=== PATIENT | female | born 1970 | race Hispanic/Latino ===

== ENCOUNTER 2017-06-17 16:57 | Emergency (ER) | payer OTHER ==
[~2017-06-17 16:57] MED LIST: AMOX500T2 PO; LACT1CAP68 PO; LEVO500T2 PO; METF-806 PO; NPH,100V SQ
[2017-06-17] MEDS ORDERED: ONDANSETRON HCL MDV 20ML 2 MG/ML VIAL ONE (17:16)
[2017-06-17] MEDS ORDERED: MORPHINE SULFATE 4 MG/1ML SYG ONE ×2 (17:16→19:52)
[2017-06-17 17:19] LABS: BASOPHILS % (AUTO) 0.7 % (0.0-5.0); EOSINOPHILS % (AUTO) 0.7 % (0.0-8.0); HEMATOCRIT 37.9 % (36-48); LYMPHOCYTES % (AUTO) 15.2 % (21.0-51.0); MEAN CORPUSCULAR HEMOGLOBIN 25.6 pg (27.0-33.0); MEAN CORPUSCULAR HGB CONC 33.3 g/dL (32.0-36.0); NEUTROPHILS % (AUTO) 76.4 % (40.0-77.0); PLATELET COUNT (AUTO) 327 K/uL (130-400); RED BLOOD CELL COUNT(AUTO) 4.92 MIL/uL (4.00-5.50); RED CELL DISTRIBUTION WIDTH 15.5 % (11.0-15.5); WHITE BLOOD COUNT (AUTO) 11.9 K/uL (4.8-10.8)
[2017-06-17] MEDS ORDERED: LACTATED RINGERS 1000ML 1,000 ML IV ONE (17:19)
[2017-06-17 17:30] LABS: INR 0.92 (0.85-1.15); PROTHROMBIN TIME 9.7 SEC (9.6-11.6)
[2017-06-17 17:37] LABS: ALANINE AMINOTRANSFERASE 29 U/L (12-78); ALBUMIN 3.1 g/dL (3.5-5.0); ASPARTATE AMINOTRANSFERASE 29 U/L (10-37); BILIRUBIN,TOTAL 0.3 mg/dL (0.2-1.0); CARBON DIOXIDE 28 mmol/L (21-32); CHLORIDE 98 mmol/L (101-111); CREATINE KINASE, TOTAL 48 U/L (21-232); CREATININE 0.8 mg/dL (0.5-1.5); GLOMERULAR FILTR. RATE CALC 82 mL/min (>60); GLUCOSE,RANDOM 349 mg/dL (70-105); LIPASE 127 U/L (114-286); SODIUM SERUM 134 mmol/L (136-145); TOTAL PROTEIN, SERUM 8.2 g/dL (6.0-8.3); UREA NITROGEN, BLOOD 17 mg/dL (7-18)
[2017-06-17] MEDS ORDERED: IOPAMIDOL-370 100 ML VIAL IV ONE (17:49)
[2017-06-17 17:54] LABS: ALCOHOL, BLOOD < 3 mg/dL (0-10)
== END 2017-06-17 20:24 | disposition home or self-care (01) ==
LOC: EDH 16:57
DX: S20.211A Contusion of right front wall of thorax, initial encounter (principal); S40.022A Contusion of left upper arm, initial encounter; S30.0XXA Contusion of lower back and pelvis, initial encounter; M54.2 Cervicalgia; E11.9 Type 2 diabetes mellitus without complications; I10 Essential (primary) hypertension; E78.5 Hyperlipidemia, unspecified; Z98.51 Tubal ligation status; Z98.890 Other specified postprocedural states; V49.49XA Driver injured in collision with other motor vehicles in traffic accident, initial encounter; Y93.89 Activity, other specified; Y92.89 Other specified places as the place of occurrence of the external cause; Y99.8 Other external cause status
CPT/HCPCS: 36415; 70450; 71260; 72125; 74177; 80053; 82550; 83690; 84484; 85025; 85610; 85730; 93005; 96360; 96361; 96374; 96375; 96376; 99285; G0480; J2270 ×2; J7120; Q9967

== ENCOUNTER 2018-10-06 08:04 | Day surgery (SDC) | payer MEDICAID ==
[~2018-10-06] VITALS: Ht 154.9 cm; Wt 127.0 kg
[2018-10-06] MEDS ORDERED: SODIUM CHLORIDE 0.9% 1000ML 1,000 ML IV ONE (08:58)
[2018-10-06 10:01] VITALS: BP 129/77
[2018-10-06 13:20] VITALS: BP 98/49
[2018-10-06 13:35] VITALS: BP 104/80
== END 2018-10-06 13:48 | disposition home or self-care (01) ==
LOC: ENDO 08:04 → DAH 08:04 → ENDO 13:48
PROVIDERS: ATTEND Surgery
DX: K21.9 Gastro-esophageal reflux disease without esophagitis (principal); E11.9 Type 2 diabetes mellitus without complications; I10 Essential (primary) hypertension; E78.00 Pure hypercholesterolemia, unspecified; G47.39 Other sleep apnea; E66.01 Morbid (severe) obesity due to excess calories; Z87.59 Personal history of other complications of pregnancy, childbirth and the puerperium; Z98.890 Other specified postprocedural states; Z68.43 Body mass index [BMI] 50.0-59.9, adult; Z79.899 Other long term (current) drug therapy
CPT/HCPCS: 43235; 82948 ×2; A4606; J7030

== ENCOUNTER 2018-10-15 10:07 | Emergency (ER) | payer MEDICAID ==
[2018-10-15] MEDS ORDERED: KETOROLAC TROMETHAMINE 60 MG/2 ML VIAL ONE (10:29)
[2018-10-15] MEDS ORDERED: DEXAMETHASONE SOD PHOSPHATE 4 MG/ML 1ML VIAL ONE (10:29)
== END 2018-10-15 10:48 | disposition home or self-care (01) ==
LOC: EDH 10:07
DX: M54.41 Lumbago with sciatica, right side (principal); I10 Essential (primary) hypertension; E11.9 Type 2 diabetes mellitus without complications; E78.5 Hyperlipidemia, unspecified; Z98.890 Other specified postprocedural states
CPT/HCPCS: 96372 ×2; 99284; J1100; J1885

== ENCOUNTER 2019-03-14 15:08 | Emergency (ER) | payer MEDICAID ==
[~2019-03-14 15:08] MED LIST changes: +AMOX-429 PO; -AMOX500T2 PO; +ATOR20TA65 PO; +HYDR25TA PO; +INSREG SQ; -LACT1CAP68 PO; -LEVO500T2 PO; +LISI-617 PO; -METF-806 PO; -NPH,100V SQ; +SITA100T12 PO
[2019-03-14 16:01] LABS: RAPID GROUP A STREP NEGATIVE (NEGATIVE)
== END 2019-03-14 16:14 | disposition home or self-care (01) ==
LOC: EDH 15:08
DX: J10.1 Influenza due to other identified influenza virus with other respiratory manifestations (principal); E11.9 Type 2 diabetes mellitus without complications; E78.5 Hyperlipidemia, unspecified; I10 Essential (primary) hypertension
CPT/HCPCS: 87804; 87880

== ENCOUNTER → 2019-10-02 | Outpatient (CLI) | payer MEDICAID ==
[~2019-10-02] MED LIST changes: +CEFAZOLIN SODIUM 1 GM VIAL IVP SCH; +SODIUM CHLORIDE 0.9% 1000ML 1,000 ML IV SCH
[2019-10-02 15:46] LABS: BASOPHILS % (AUTO) 0.5 % (0.0-5.0); EOSINOPHILS % (AUTO) 1.6 % (0.0-8.0); HEMATOCRIT 35.8 % (36-48); LYMPHOCYTES % (AUTO) 37.7 % (21.0-51.0); MEAN CORPUSCULAR HEMOGLOBIN 26.2 pg (27.0-33.0); MEAN CORPUSCULAR HGB CONC 31.6 g/dL (32.0-36.0); MEAN CORPUSCULAR VOLUME 82.9 fL (79-99); MONOCYTES % (AUTO) 7.6 % (3.0-13.0); NEUTROPHILS % (AUTO) 52.2 % (40.0-77.0); PLATELET COUNT (AUTO) 255 K/uL (130-400); RED BLOOD CELL COUNT(AUTO) 4.32 MIL/uL (4.00-5.50); RED CELL DISTRIBUTION WIDTH 15.3 % (11.0-15.5); WHITE BLOOD COUNT (AUTO) 5.7 K/uL (4.8-10.8)
[2019-10-02 16:03] LABS: CREATININE 0.4 mg/dL (0.5-1.5); POTASSIUM 3.7 mmol/L (3.5-5.1)
== END ==
LOC: DAH 10:00 → EDSTATUS 10-08 08:00
PROVIDERS: ATTEND Surgery
DX: Z01.818 Encounter for other preprocedural examination (principal); Z11.59 Encounter for screening for other viral diseases
CPT/HCPCS: 36415; 80048; 84703; 85025; A6260; U0003

== ENCOUNTER 2019-11-01 06:03 | Day surgery (SDC) | payer MEDICAID ==
[2019-10-23 11:59] LABS: BASOPHILS % (AUTO) 0.6 % (0.0-5.0); EOSINOPHILS % (AUTO) 1.3 % (0.0-8.0); HEMATOCRIT 37.7 % (36-48); LYMPHOCYTES % (AUTO) 27.7 % (21.0-51.0); MEAN CORPUSCULAR HEMOGLOBIN 26.3 pg (27.0-33.0); MEAN CORPUSCULAR HGB CONC 31.6 g/dL (32.0-36.0); MEAN CORPUSCULAR VOLUME 83.2 fL (79-99); MONOCYTES % (AUTO) 8.7 % (3.0-13.0); NEUTROPHILS % (AUTO) 61.4 % (40.0-77.0); PLATELET COUNT (AUTO) 244 K/uL (130-400); RED BLOOD CELL COUNT(AUTO) 4.53 MIL/uL (4.00-5.50); RED CELL DISTRIBUTION WIDTH 14.8 % (11.0-15.5); WHITE BLOOD COUNT (AUTO) 6.8 K/uL (4.8-10.8)
[2019-10-23 12:11] LABS: CREATININE 0.6 mg/dL (0.5-1.5)
--- NOTE | 2019-10-25 14:50 | NUR ---
REPORT CALLED DR FOUNTAIN OFFICE AND SPOKE TO LISA. CHEUNG AWARE PT COVID POSITIVE AGAIN. PT ASYMPTOMATIC. MD WILL PROCEED WITH SURGERY
[2019-10-31 10:04] VITALS: BP 160/83
[~2019-11-01] VITALS: Ht 154.9 cm; Wt 95.9 kg
[2019-11-01] VITALS (17 sets, daily range): BP systolic 130–161; BP diastolic 65–80
[~2019-11-01 06:03] MED LIST changes: -AMOX-429 PO; -ATOR20TA65 PO; +CEFAZOLIN SODIUM 1 GM VIAL IVP ONE; -HYDR25TA PO; -INSREG SQ; -LISI-617 PO; -SITA100T12 PO
[2019-11-01] MEDS: SODIUM CHLORIDE 0.9% 1000ML 1,000 ML IV SCH ×2 (06:50→10:08)
[2019-11-01] MEDS ORDERED: BUPIVACAINE/PF 0.5% 10ML VIAL ONE (07:19)
[2019-11-01] MEDS ORDERED: LIDOCAINE PF 2% 5ML ABBOJECT ONE (08:00)
[2019-11-01] MEDS ORDERED: SUCCINYLCHOLINE 200MG/10ML SYR ONE (08:00)
[2019-11-01] MEDS ORDERED: FENTANYL CITRATE PF 50 MCG/1 ML 2ML VIAL ONE ×2 (08:01→08:48)
[2019-11-01] MEDS ORDERED: MIDAZOLAM HCL 1 MG/ML 2ML VIAL ONE (08:01)
[2019-11-01] MEDS ORDERED: ROCURONIUM 10MG/1ML SYR 10 MG/ML ML ONE (08:01)
[2019-11-01] MEDS ORDERED: PROPOFOL 10 MG/ML 20ML VIAL IV ONE ×2 (08:01→09:20)
[2019-11-01] MEDS ORDERED: ONDANSETRON HCL 4 MG/2 ML VIAL ONE (08:04)
[2019-11-01] MEDS ORDERED: EPHEDRINE SULFATE 50 MG/ML AMPULE ONE (08:29)
[2019-11-01] MEDS ORDERED: NEOSTIGMINE 5MG/5ML SYR IV ONE (09:32)
[2019-11-01] MEDS ORDERED: GLYCOPYRROLATE 1 MG/5 ML SYRINGE ONE (09:32)
[2019-11-01] MEDS ORDERED: KETOROLAC TROMETHAMINE 30MG/ML ONE (09:49)
[2019-11-01] MEDS ORDERED: MEPERIDINE-PF 25 MG/ML SYG ONE (10:21)
== END 2019-11-01 12:00 | disposition home or self-care (01) ==
LOC: DAH 06:03
PROVIDERS: ATTEND Surgery
DX: K80.10 Calculus of gallbladder with chronic cholecystitis without obstruction (principal); K21.9 Gastro-esophageal reflux disease without esophagitis; E11.9 Type 2 diabetes mellitus without complications; I10 Essential (primary) hypertension; Z98.84 Bariatric surgery status; Z20.828 Contact with and (suspected) exposure to other viral communicable diseases
CPT/HCPCS: 36415; 43235; 47562; 80048; 82948 ×2; 84703; 85025; 88304; A4215; A4221; A4222; A4223; A4600; A4649 ×2; A4657; A4663; A4930; C1769 ×2; C9803; J0330; J0690; J2001; J2175; J2250; J2405; J2704 ×2; J2710; J3010 ×2; J3490 ×3; J7030 ×3; S2900; U0003; J1885

== ENCOUNTER 2021-04-10 06:50 | Day surgery (SDC) | payer MEDICAID ==
[~2021-04-10] VITALS: Ht 154.9 cm; Wt 108.9 kg
[~2021-04-10 06:50] MED LIST changes: -CEFAZOLIN SODIUM 1 GM VIAL IVP ONE; -CEFAZOLIN SODIUM 1 GM VIAL IVP SCH; -SODIUM CHLORIDE 0.9% 1000ML 1,000 ML IV SCH; +SODIUM TETRADECYL SULFATE 30 MG/ML VIAL IV SCH
[2021-04-10] MEDS ORDERED: 0.9%NACL 1000ML 1,000 ML IV ONE (07:05)
[2021-04-10 07:10] VITALS: BP 136/80
[2021-04-10] MEDS ORDERED: KETAMINE HCL 50MG/ML 10ML VIAL IJ ONE (08:19)
[2021-04-10] MEDS ORDERED: GLYCOPYRROLATE 0.2 MG/ML 5 ML VIAL ONE (08:21)
[2021-04-10] MEDS ORDERED: PROPOFOL 10 MG/ML 20ML VIAL IV ONE (08:21)
[2021-04-10] MEDS ORDERED: LIDOCAINE HCL 400MG/20ML VIAL ONE (08:22)
[2021-04-10] MEDS ORDERED: MIDAZOLAM HCL 1 MG/ML 2ML VIAL ONE (08:22)
[2021-04-10 08:40] VITALS: BP 149/62
[2021-04-10 08:45] VITALS: BP 151/69
[2021-04-10 08:50] VITALS: BP 120/66
[2021-04-10 09:05] VITALS: BP 132/66
[2021-04-10 09:10] VITALS: BP 123/69
== END 2021-04-10 09:15 | disposition home or self-care (01) ==
LOC: DAH 06:50
PROVIDERS: ATTEND Surgery
DX: K21.9 Gastro-esophageal reflux disease without esophagitis (principal); R13.10 Dysphagia, unspecified; Z20.822 Contact with and (suspected) exposure to COVID-19; I10 Essential (primary) hypertension; G47.30 Sleep apnea, unspecified; E11.9 Type 2 diabetes mellitus without complications; E66.9 Obesity, unspecified; Z90.49 Acquired absence of other specified parts of digestive tract; Z98.890 Other specified postprocedural states; Z98.891 History of uterine scar from previous surgery; Z83.3 Family history of diabetes mellitus; Z82.49 Family history of ischemic heart disease and other diseases of the circulatory system; Z80.9 Family history of malignant neoplasm, unspecified; Z98.84 Bariatric surgery status; Z68.42 Body mass index [BMI] 45.0-49.9, adult
CPT/HCPCS: 43236; 87635; A4215 ×2; A4221; A4223; A4606; A4620; A4663; C9803; J2250; J3490 ×5; J7030; J2704

== ENCOUNTER 2021-10-03 20:02 | Emergency (ER) | payer MEDICAID ==
[~2021-10-03] VITALS: Ht 154.9 cm; Wt 113.4 kg
[2021-10-03] MEDS ORDERED: HYDROCODONE/ACETAMINOPHEN 5/325 MG TAB PO ONE (20:30)
[2021-10-03 20:51] VITALS: BP 145/74
[2021-10-03] MEDS ORDERED: ACET-2247 PO (21:34)
== END 2021-10-03 21:44 | disposition home or self-care (01) ==
LOC: EDH 20:02
DX: S93.115A Dislocation of interphalangeal joint of left lesser toe(s), initial encounter (principal); X58.XXXA Exposure to other specified factors, initial encounter; Y93.89 Activity, other specified; Y92.89 Other specified places as the place of occurrence of the external cause; Y99.8 Other external cause status
CPT/HCPCS: 28660; 73660

== ENCOUNTER 2022-07-02 06:39 | Day surgery (SDC) | payer MEDICAID ==
[2022-07-02] VITALS (8 sets, daily range): BP systolic 120–147; BP diastolic 58–77
[~2022-07-02] VITALS: Ht 154.9 cm; Wt 117.0 kg
[~2022-07-02 06:39] MED LIST changes: +ATOR20TA65 PO; +SEMA0.258 SQ; -SODIUM TETRADECYL SULFATE 30 MG/ML VIAL IV SCH
[2022-07-02] MEDS ORDERED: SODIUM TETRADECYL SULFATE 30 MG/ML 2 ML VIAL IV ONE (08:00)
[2022-07-02] MEDS ORDERED: PROPOFOL 10 MG/ML 20ML VIAL IV ONE (09:03)
[2022-07-02] MEDS ORDERED: 0.9%NACL 1000ML 1,000 ML IV ONE (10:43)
== END 2022-07-02 09:50 | disposition home or self-care (01) ==
LOC: ENDO 06:39 → DAH 06:39 → ENDO 09:50
PROVIDERS: ATTEND Surgery
DX: K21.9 Gastro-esophageal reflux disease without esophagitis (principal); Z20.822 Contact with and (suspected) exposure to COVID-19; I10 Essential (primary) hypertension; E11.9 Type 2 diabetes mellitus without complications; G47.30 Sleep apnea, unspecified; E66.9 Obesity, unspecified; Z79.01 Long term (current) use of anticoagulants; Z79.899 Other long term (current) drug therapy; Z98.890 Other specified postprocedural states; Z90.49 Acquired absence of other specified parts of digestive tract; Z88.3 Allergy status to other anti-infective agents; Z82.49 Family history of ischemic heart disease and other diseases of the circulatory system; Z83.3 Family history of diabetes mellitus; Z80.9 Family history of malignant neoplasm, unspecified; Z68.42 Body mass index [BMI] 45.0-49.9, adult
CPT/HCPCS: 87426; 43236; 82948; J7030 ×2; J3490 ×2; A4620; A4215 ×2; A4223; A4222; A4221; A4663; A4606; J2704

== ENCOUNTER 2022-08-13 06:32 | Day surgery (SDC) | payer MEDICAID ==
[2022-08-12 14:18] VITALS: BP 114/69
[2022-08-13] VITALS (8 sets, daily range): BP systolic 134–155; BP diastolic 50–88
[~2022-08-13 06:32] MED LIST changes: +0.9%NACL 1000ML 1,000 ML IV ONE; -ATOR20TA65 PO; +SODIUM TETRADECYL SULFATE 30 MG/ML 2 ML VIAL IV SCH
[2022-08-13] MEDS ORDERED: LIDOCAINE PF 100MG/5ML (2%) SYRINGE 5ML ONE (08:19)
[2022-08-13] MEDS ORDERED: PROPOFOL 10 MG/ML 20ML VIAL IV ONE (08:19)
[2022-08-13] MEDS ORDERED: MEPERIDINE-PF 25 MG/ML SYG ONE ×2 (08:34→09:02)
[2022-08-13] MEDS ORDERED: ONDANSETRON 4MG INJ ONE (08:35)
== END 2022-08-13 09:40 | disposition home or self-care (01) ==
LOC: ENDO 06:32 → DAH 06:32 → ENDO 09:40
PROVIDERS: ATTEND Surgery
DX: K21.9 Gastro-esophageal reflux disease without esophagitis (principal); Z20.822 Contact with and (suspected) exposure to COVID-19; I10 Essential (primary) hypertension; G47.30 Sleep apnea, unspecified; E11.9 Type 2 diabetes mellitus without complications; Z90.49 Acquired absence of other specified parts of digestive tract; Z98.890 Other specified postprocedural states; Z98.84 Bariatric surgery status; Z98.891 History of uterine scar from previous surgery; Z82.49 Family history of ischemic heart disease and other diseases of the circulatory system; Z83.3 Family history of diabetes mellitus; Z80.9 Family history of malignant neoplasm, unspecified; Z80.3 Family history of malignant neoplasm of breast
CPT/HCPCS: 87426; 81025; 43236; J7030 ×2; J3490 ×3; J2405; J2175 ×2; A4620; A4215 ×2; A4223; A7002; A4222; A4221; A4663; A4216; A4606; J2001; J2704

== ENCOUNTER 2022-09-06 07:51 | Day surgery (SDC) | payer MEDICAID ==
[2022-09-03 14:32] VITALS: BP 145/87
[~2022-09-06] VITALS: Ht 154.9 cm; Wt 112.8 kg
[2022-09-06] VITALS (13 sets, daily range): BP systolic 105–150; BP diastolic 59–87
[~2022-09-06 07:51] MED LIST changes: -0.9%NACL 1000ML 1,000 ML IV ONE; -SODIUM TETRADECYL SULFATE 30 MG/ML 2 ML VIAL IV SCH
[2022-09-06] MEDS ORDERED: SODIUM TETRADECYL SULFATE 30 MG/ML 2 ML VIAL IV ONE (09:30)
[2022-09-06] MEDS ORDERED: 0.9%NACL 1000ML 1,000 ML IV ONE (10:45)
[2022-09-06] MEDS ORDERED: PROPOFOL 10 MG/ML 20ML VIAL IV ONE (11:48)
[2022-09-06] MEDS ORDERED: ONDANSETRON 4MG INJ ONE ×2 (11:48→12:50)
[2022-09-06] MEDS ORDERED: MIDAZOLAM HCL 1 MG/ML 2ML VIAL ONE (11:48)
[2022-09-06] MEDS ORDERED: LIDOCAINE PF 100MG/5ML (2%) SYRINGE 5ML ONE (11:49)
[2022-09-06] MEDS ORDERED: MEPERIDINE-PF 25 MG/ML SYG ONE (12:15)
== END 2022-09-06 13:10 | disposition home or self-care (01) ==
LOC: DAH 07:51 → ENDO 07:51
PROVIDERS: ATTEND Surgery
DX: K21.9 Gastro-esophageal reflux disease without esophagitis (principal); Z20.822 Contact with and (suspected) exposure to COVID-19; R13.10 Dysphagia, unspecified; I10 Essential (primary) hypertension; E78.5 Hyperlipidemia, unspecified; G47.30 Sleep apnea, unspecified; E11.9 Type 2 diabetes mellitus without complications; Z98.890 Other specified postprocedural states; Z98.891 History of uterine scar from previous surgery; Z90.49 Acquired absence of other specified parts of digestive tract; Z82.49 Family history of ischemic heart disease and other diseases of the circulatory system; Z80.9 Family history of malignant neoplasm, unspecified; Z83.3 Family history of diabetes mellitus
CPT/HCPCS: 87426; 43236; A4215 ×3; J7030 ×2; J3490 ×3; J2250; J2405 ×2; J2175; A4620; A4223; A4657 ×3; A7002; A4222; A4221; A4663; A4216; A4606; 43201; J2001; J2704